=== PATIENT | female | born 1970 | race African-American/Black ===

== ENCOUNTER 2019-04-24 22:28 | Emergency (ER) | payer BC, OTHER ==
--- NOTE | 2019-04-24 22:46 | ER Document Report ---
ED Medical Screen (RME) - General Chief Complaint: Allergic Reaction Stated Complaint: POSSIBLE ALLERGIC REACTION Time Seen by Provider: 04/24/19 22:41 Mode of Arrival: Ambulatory Information source: Patient Notes: 49-year-old female presents to ED for swelling to her upper and lower lip with itching to her mouth. She states there is no swelling to her tongue patient denies shortness of breath or difficulty swallowing. She states it started about 2 hours ago after she ate some type. She states she had something similar happen about 20 years ago after she drank drank a great soda. She states that she had great soda since then and it did not happen. She has one small hive on the left arm no other hives noted. She is on lisinopril 5 mg once a day and has been on it for 3 or 4 months. Patient is also on control. Patient has been told not to use any more lisinopril because she speaks with her doctor due to the swelling of her lips. I have greeted and performed a rapid initial assessment of this patient. A comprehensive ED assessment and evaluation of the patient, analysis of test results and completion of medical decision making process will be conducted by an additional ED providers. Physical Exam - Vital signs Vitals: Temp Pulse Resp BP Pulse Ox 98.0 F 78 17 153/91 H 100 04/24/19 22:38 04/24/19 22:38 04/24/19 22:38 04/24/19 22:38 04/24/19 22:38 Course - Vital Signs Vital signs: Temp Pulse Resp BP Pulse Ox 98.0 F 78 17 153/91 H 100 04/24/19 22:38 04/24/19 22:38 04/24/19 22:38 04/24/19 22:38 04/24/19 22:38
[2019-04-24] MEDS ORDERED: FAMOTIDINE INJ/PF 20 MG/2 ML SDV IV ONE (22:49)
[2019-04-24] MEDS ORDERED: METHYLPREDNISOLONE INJ 125 MG/2 ML SDV IV ONE (22:49)
[2019-04-24] MEDS ORDERED: EPINEPHRINE INJ/PF 1 MG/1 ML AMPULE IM ONE (22:49)
[2019-04-24] MEDS ORDERED: DIPHENHYDRAMINE HCL 50 MG/ML VIAL IV ONE (22:50)
[2019-04-25 00:33] LABS: ABSOLUTE BASOPHILS # (AUTO) 0.1 10^3/uL (0.0-0.2); ABSOLUTE EOSINOPHILS # (AUTO) 0.1 10^3/uL (0.0-0.6); ABSOLUTE LYMPHOCYTES (AUTO) 2.1 10^3/uL (0.5-4.7); ABSOLUTE MONOCYTES (AUTO) 0.7 10^3/uL (0.1-1.4); ABSOLUTE NEUT (AUTO) 4.7 10^3/uL (1.7-8.2); BASOPHILS % (AUTO) 0.7 % (0-2); EOSINOPHILS % (AUTO) 1.8 % (0-6); HEMATOCRIT 37.7 % (36.0-47.0); HEMOGLOBIN 12.7 g/dL (12.0-15.5); MEAN CORPUSCULAR HEMOGLOBIN 31.5 pg (27.0-33.4); MEAN CORPUSCULAR HGB CONC 33.8 g/dL (32.0-36.0); MEAN CORPUSCULAR VOLUME 93 fl (80-97); MONOCYTES % (AUTO) 9.2 % (3-13); PLATELET COUNT 287 10^3/uL (150-450); RED BLOOD COUNT 4.04 10^6/uL (3.72-5.28); RED CELL DISTRIBUTION WIDTH 12.8 % (11.5-14.0); SEGMENTED NEUTROPHILS % (AUTO) 61.3 % (42-78); TOTAL CELLS COUNTED % (AUTO) 100 %; WHITE BLOOD COUNT 7.7 10^3/uL (4.0-10.5)
[2019-04-25 00:48] LABS: ALBUMIN 4.4 g/dL (3.5-5.0); ALKALINE PHOSPHATASE 76 U/L (38-126); ANION GAP 9 (5-19); ASPARTATE AMINO TRANSFERASE 21 U/L (14-36); BILIRUBIN,DIRECT 0.1 mg/dL (0.0-0.4); BILIRUBIN,TOTAL 0.3 mg/dL (0.2-1.3); BLOOD UREA NITROGEN 13 mg/dL (7-20); CALCIUM 9.6 mg/dL (8.4-10.2); CARBON DIOXIDE 27 mmol/L (22-30); CHLORIDE 102 mmol/L (98-107); GLUCOSE 119 mg/dL (75-110); POTASSIUM 3.7 mmol/L (3.6-5.0); TOTAL PROTEIN 7.7 g/dL (6.3-8.2)
[2019-04-25 02:16] VITALS: BP 134/83
--- NOTE | 2019-04-25 02:26 | ER Document Report ---
ED General - General Chief Complaint: Allergic Reaction Stated Complaint: POSSIBLE ALLERGIC REACTION Time Seen by Provider: 04/24/19 22:41 Mode of Arrival: Ambulatory Notes: Patient is a 49-year-old female presents to the emergency department for swelling of bilateral lips and a hive noted to left upper extremity. Patient voices she was eating dinner at approximately 1900 hrs. States all the food she ate his typical food she is always eaten. Patient voices she did eat carrot cake which had a peripheral diet in the [facility]. Patient voices she is never had an allergy to purple dye but that is the only thing she can think of that was different. Patient's denying any new exposure to lotions, detergents, pets. Patient voices she has been taking lisinopril 5 mg for approximately the last 3 months for hypertension. Patient is denying any nausea, vomiting, diarrhea, tongue swelling, chest pain, throat pain, tightness in her chest or throat. - Related Data Allergies/Adverse Reactions: No Known Allergies Allergy (Unverified 04/24/19 22:42) Home Medications: none Past Medical History - General Information source: Patient - Social History Smoking Status: Never Smoker Family History: Reviewed & Not Pertinent Patient has suicidal ideation: No Patient has homicidal ideation: No Review of Systems - Review of Systems Constitutional: denies: Fever EENT: See HPI Cardiovascular: See HPI Respiratory: See HPI Gastrointestinal: See HPI Genitourinary: No symptoms reported Female Genitourinary: No symptoms reported Musculoskeletal: No symptoms reported Skin: See HPI Hematologic/Lymphatic: No symptoms reported Neurological/Psychological: No symptoms reported Physical Exam - Vital signs Vitals: Temp Pulse Resp BP Pulse Ox 98.0 F 78 17 153/91 H 100 04/24/19 22:38 04/24/19 22:38 04/24/19 22:38 04/24/19 22:38 04/24/19 22:38 - Notes Notes: GENERAL: Alert, interacts well. No acute distress. HEAD: Normocephalic, atraumatic. EYES: Pupils equal, round, and reactive to light. Extraocular movements intact. ENT: Oral mucosa moist, tongue midline. Nares patent, TM's intact, nonerythematous, nonbulging bilaterally. Upper and lower lips swollen, tongue within normal limits. NECK: Full range of motion. Supple. Trachea midline. No lymphadenopathy appreciated LUNGS: Clear to auscultation bilaterally, no wheezes, rales, or rhonchi. No respiratory distress. HEART: Regular rate and rhythm. No murmur ABDOMEN: Soft, non-tender. Non-distended. Bowel sounds present in all 4 quadrants. EXTREMITIES: Moves all 4 extremities spontaneously. No edema, normal radial and dorsalis pedis pulses bilaterally. No cyanosis. BACK: no cervical, thoracic, lumbar midline tenderness. No saddle anesthesia, normal distal neurovascular exam. NEUROLOGICAL: Alert and oriented x3. Normal speech. cranial nerves II through XII grossly intact. PSYCH: Normal affect, normal mood. SKIN: Warm, dry, normal turgor. No rashes or lesions noted. No hives appreciated left upper extremity. Course - Re-evaluation Re-evalutation: 04/25/19 02:23 Laboratory 04/24/19 04/24/19 04/24/19 23:04 23:04 23:04 WBC 7.7 RBC 4.04 Hgb 12.7 Hct 37.7 MCV 93 MCH 31.5 MCHC 33.8 RDW 12.8 Plt Count 287 Lymph % (Auto) 27.0 [place] % (Auto) 9.2 Eos % (Auto) 1.8 Baso % (Auto) 0.7 Absolute Neuts (auto) 4.7 Absolute Lymphs (auto) 2.1 Absolute Monos (auto) 0.7 Absolute Eos (auto) 0.1 Absolute Basos (auto) 0.1 Seg Neutrophils % 61.3 Sodium 138.3 Potassium 3.7 Chloride 102 Carbon Dioxide 27 Anion Gap 9 BUN 13 Creatinine 0.77 Est GFR ( Amer) > 60 Est GFR (MDRD) Non-Af > 60 Glucose 119 H Calcium 9.6 Total Bilirubin 0.3 Direct Bilirubin 0.1 Neonat Total Bilirubin Not Reportable Neonat Direct Bilirubin Not Reportable Neonat Indirect Bili Not Reportable AST 21 ALT 16 Alkaline Phosphatase 76 Total Protein 7.7 Albumin 4.4 Blood Type A POSITIVE Antibody Screen NEGATIVE RME provider did note patient had a hive to the left upper extremity. Anaph ylactic protocol administered. Upon my examination patient has upper and lower lip swelling. She is denying any respiratory distress, denies any tongue swelling or trouble swallowing. Discussed this with my attending Dr. Perez who is in agreement the pt. does not need FFP at this time. Close return precautions discussed. Patient has been observed in the emergency department approximately 3 hours since epinephrine administration. Patient voices she feels as though her lips are not as itchy, is denying any change in their level of swelling. I discussed with patient this is likely due to the lisinopril that she took. I discussed stopping the lisinopril and following up with her primary care provider. Patient voices she will call her doctor on Friday. Close return precautions discussed. Stable for discharge. - Vital Signs Vital signs: Temp Pulse Resp BP Pulse Ox 98.0 F 78 19 134/83 H 98 04/24/19 22:38 04/24/19 22:38 04/25/19 02:01 04/25/19 02:00 04/25/19 02:01 - Laboratory Result Diagrams: 04/24/19 23:04 04/24/19 23:04 Laboratory results interpreted by me: 04/24/19 23:04 Glucose 119 H Discharge - Discharge Clinical Impression: Angioedema Qualifiers: Encounter type: initial encounter Qualified Code(s): T78.3XXA - Angioneurotic edema, initial encounter Condition: Stable Disposition: HOME, SELF-CARE Instructions: Angioedema (OM) Additional Instructions: As we discussed you have been seen and treated in the emergency department for swelling of your lips. This is likely due to the lisinopril that you are taking. Please stop taking the lisinopril immediately. Please also do not take any other BEVERLY inhibitors. You can take [id number] Benadryl should you have any generalized itching. Should your tongue gets swollen, you have any trouble swallowing or any respiratory distress he should immediately return to the emergency room. Otherwise follow-up with your primary care provider in the next 12 to 24 hours. Return to the emergency room for any other concerns. Forms: Return to Work
== END 2019-04-25 02:47 | disposition home or self-care (01) ==
LOC: ER 22:28
DX: T78.3XXA Angioneurotic edema, initial encounter (principal); R22.0 Localized swelling, mass and lump, head; I10 Essential (primary) hypertension; Z79.899 Other long term (current) drug therapy
CPT/HCPCS: 86900; 86901; 36415; 86850; 85025; 80053; J1200; J0171; J2930; S0028; 96372; 96374; 96375; 99283